=== PATIENT | female | born 1960 | race Caucasian/White ===

== ENCOUNTER 2017-05-31 16:39 | Emergency (ER) | payer MEDICARE ==
[~2017-05-31] VITALS: Ht 162.6 cm; Wt 83.9 kg
[~2017-05-31 16:39] MED LIST: DOXYCYCLINE HY100 M4 PO; PREDNISONE20 MG PO
[2017-05-31] MEDS ORDERED: TOPIRAMATE100 MG PO (16:52)
[2017-05-31] MEDS ORDERED: AVPAK PRIMIDONE50 MG PO (16:52)
[2017-05-31] MEDS ORDERED: ATENOLOL25 M1 PO (16:52)
[2017-05-31] MEDS ORDERED: AMITRIPTYLINE 225 MG PO (16:52)
--- OUTSIDE RECORDS SUMMARY | 2017-05-31 17:55 | External Medical Summary Rpt ---
Author Author DHIRAJ Escobar, [employer] Address Unknown Phone Unavailable
--- OUTSIDE RECORDS SUMMARY | 2017-05-31 17:55 | External Medical Summary Rpt ---
Author Author , DHIRAJ HEARN Address Unknown Phone [email or web address] Purpose Continuity of Care Document - 09-13-2016 through 2016 Problems Code Diagnosis DOS Provider Status R10.9 UNSPECIFIED 04-29-2017 ABDOMINAL PAIN N20.0 CALCULUS OF 01-03-2017 KIDNEY I10 ESSENTIAL 12-23-2016 (PRIMARY) HYPERTENSIO N K21.9 GASTRO-ESOP 12-23-2016 HAGEAL REFLUX DISEASE WITHOUT ESOPHAGITIS N13.39 OTHER 12-23-2016 HYDRONEPHRO SIS R10.31 RIGHT LOWER 12-23-2016 QUADRANT PAIN R11.0 NAUSEA 12-23-2016 Z90.49 ACQUIRED 12-23-2016 ABSENCE OF OTHER SPECIFIED PARTS OF DIGESTIVE TRACT Z90.710 ACQUIRED 12-23-2016 ABSENCE OF BOTH CERVIX AND UTERUS E27.9 DISORDER OF 11-15-2016 ADRENAL GLAND, UNSPECIFIED Z79.899 OTHER LONG 11-15-2016 TERM (CURRENT) DRUG THERAPY Z88.0 ALLERGY 11-15-2016 STATUS TO PENICILLIN G25.0 ESSENTIAL 09-13-2016 TREMOR G43.909 MIGRAINE, 09-13-2016 UNSPECIFIED , NOT INTRACTABLE , WITHOUT STATUS MIGRAINOSUS J32.9 CHRONIC 09-13-2016 SINUSITIS, UNSPECIFIED M19.90 UNSPECIFIED 09-13-2016 OSTEOARTHRI TIS, UNSPECIFIED SITE R94.39 ABNORMAL 09-13-2016 RESULT OF OTHER CARDIOVASCU LAR FUNCTION STUDY Z80.9 FAMILY 09-13-2016 HISTORY OF MALIGNANT NEOPLASM, UNSPECIFIED Z82.3 FAMILY 09-13-2016 HISTORY OF STROKE Z82.49 FAMILY 09-13-2016 HISTORY OF ISCHEMIC HEART DISEASE AND OTHER DISEASES OF THE CIRCULATORY SYSTEM Z82.61 FAMILY 09-13-2016 HISTORY OF ARTHRITIS Z83.3 FAMILY 09-13-2016 HISTORY OF DIABETES MELLITUS Z88.3 ALLERGY 09-13-2016 STATUS TO OTHER ANTI-INFECT CELINA AGENTS STATUS Z88.7 ALLERGY 09-13-2016 STATUS TO SERUM AND VACCINE STATUS Z88.8 ALLERGY 09-13-2016 STATUS TO OTHER DRUGS, MEDICAMENTS AND BIOLOGICAL SUBSTANCES STATUS
--- OUTSIDE RECORDS SUMMARY | 2017-05-31 17:55 | External Medical Summary Rpt ---
Author Author , DHIRAJ HEARN Address Unknown Phone [email or web address] Immunization Name Date Rout CVX Reac Dose Comm Prov Is Faci e tion ent ider Refu lity Give sed n Rabi 07-2 18 999 Hist H109 No H109 es, 3-19 oric IM 99 al Info rmat ion - Sour ce Unsp ecif ied Rabi 07-0 18 999 Hist H109 No H109 es, 9-19 oric IM 99 al Info rmat ion - Sour ce Unsp ecif ied Rabi 07-0 18 999 Hist H109 No H109 es, 2-19 oric IM 99 al Info rmat ion - Sour ce Unsp ecif ied Rabi 06-2 18 999 Hist H109 No H109 es, 8-19 oric IM 99 al Info rmat ion - Sour ce Unsp ecif ied Rabi 06-2 18 999 Hist H109 No H109 es, 5-19 oric IM 99 al Info rmat ion - Sour ce Unsp ecif ied
--- OUTSIDE RECORDS SUMMARY | 2017-05-31 17:55 | External Medical Summary Rpt ---
Author Author [employer] Organization [employer] Address Unknown Phone Unavailable Purpose Continuity of Care Document - through 2016
--- OUTSIDE RECORDS SUMMARY | 2017-05-31 17:55 | External Medical Summary Rpt ---
Author Author , DHIRAJ HEARN Address Unknown Phone [email or web address] Purpose Continuity of Care Document - 09-13-2016 [...]
--- OUTSIDE RECORDS SUMMARY | 2017-05-31 17:55 | External Medical Summary Rpt ---
Author Author , DHIRAJ HEARN Address Unknown Phone [email or web address] Immunization Name Date Rout CVX Reac Dose [...]
--- NOTE | 2017-05-31 18:48 | Emergency Room Report ---
History of Present Illness Time Seen by [id number] Presenting Problem in Triage Pt arrived:Wheelchair Presenting Problem:PT STATES HAS HAD 3 EPISODES OF PERIODS WHERE SHE GOES "VERY STIFF" HAS A SEVERE HEADACHE AND HER TREMORS GET WORSE. 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 N Clinical Suspician of Infection? N Mental Status: 1 - Regular (Normal Baseline) Sepsis Risk:Possible Sepsis Risk Have you (or family members/close friends) recently traveled outside the [place]? N If Yes, where/when: Have you had exposure to infectious disease within the past month? N TB? Other? Specify: Source patient, RN notes reviewed, family, RN/MD Exam Limitations no limitations Comment Patient has a history of chronic tremors, chronic migraine headaches. She is here today with a migraine headache for the past 3 days, worse tremors in upper extremities. She has photophobia, sonophobia, nausea but no vomiting. Patient has any fever. The pattern of her headache experienced over the past few days is unchanged from previous migraines experienced in the past. ALLERGIES Coded Allergies: Cephalosporins (05/31/17) NSAIDS (Non-Steroidal Anti-Inflamma (05/31/17) Penicillins (05/31/17) amoxicillin (05/31/17) tolmetin (05/31/17) Uncoded Allergies: RABIES VACCINES (05/31/17) Home Medications Reported Medications Atenolol 25 MG PO DAILY #30 Topiramate 100 MG PO QHS #90 Amitriptyline Hcl (Amitriptyline) 25 MG PO QHS #90 Primidone (Avpak Primidone) 100 MG PO QHS #60 History Medical History General CAD? No Angina: No [place]: No Hypertension? Yes Hyperlipidemia? Yes CHF? No COPD? No Asthma? No Hernia? No Thyroid Problems? No Hypothyroidism? No CVA? No Seizures? No Diabetes? No UTI? No Stones? No GB Disease: Yes Hepatitis? No Cataracts? No Glaucoma? No MRSA? No TB? No Cancer? Yes Site: Cervical More? Yes Additional hx: NON-ESSENTIAL TREMORS Immunization Hx DT/Tetanus 5-10 YRS Surgical Hx Previous Surgery?Y Lap Trice @[facility] 06/2001 ERCP @ [facility] 06/2001 L Shoulder ~ 1992 [facility]@[email or web address] surgery CERVICAL CANCER REMOVAL [facility] BILAT ARMS-MULT SURG. 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 Hx LMP N/A Family History Family Hx Diabetes No CAD Yes Hypertension Yes Hyperlipidemia Yes Cancer No TB No Social History Smoking Hx Smoker: Never Smoker Tobacco: No Alcohol Alcohol: No Review of Systems All Other Systems Reviewed and Negative Psychiatric/Neurological headache Physical Exam Vital Signs Vital Signs Date Time Temp Pulse Resp B/P Pulse O2 O2 Flow FiO2 Ox Delivery Rate 05/31 1946 97.7 93 18 149/88 99 05/31 1941 97.7 93 18 149/88 99 05/31 1939 20 05/31 1918 20 05/31 1911 98 20 125/84 96 05/31 1841 94 20 125/84 98 05/31 1836 20 05/31 1642 97.7 111 22 188/111 97 General Appearance normal appearance, WD/WN, mild distress Eye Exam - bilateral eye normal exam, bilateral eye PERRL, bilateral eye EOMI Neck normal inspection, non-tender, supple, full range of motion Respiratory Status Yes: trachea midline, chest symmetrical, non tender chest. No: respiratory distress. Lung Sounds bilateral: normal breath sounds, lungs clear. 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 No Comment Upon re-evaluationthe patient appears medically stable, clinically improving, afebrile, with no nuchal rigidity. Advised patient of the results obtained, need to follow-up with PCP per discharge instructions. Results/Orders Orders Procedure Date/time Status DIET-NOTHING BY MOUTH 05/[address] HEAD REQ 05/31 1655 Complete XRAY/CT/US XRAY/CT/US CT head CT interpretation by discussed w/radiologist CT Results see radiologist's report Departure Departure Disposition DC Home or Self Care(routine) Clinical Impression Primary Impression: Migraine headache Qualifiers: Migraine type: without aura Status migrainosus presence: without status migrainosus Intractability: not intractable Qualified Code: G43.009 - Migraine without aura, not intractable, without status migrainosus Condition STABLE Patient Instructions DI for Migraine Additional Instructions Please follow-up with your family physician the morning if no better. Discharge Counseling Counseled pt/family regarding diagnosis, medications/RX, home care, follow up needs Comment Please follow-up with your family physician the morning if no better. ED Critical Care Critical Care No at [phone]
--- NOTE | 2017-05-31 18:48 | Emergency Room Report ---
History of Present Illness Time Seen by [id number] Presenting Problem in Triage Pt arrived:Wheelchair Presenting Problem:PT STATES HAS HAD 3 EPISODES OF PERIODS WHERE SHE GOES "VERY STIFF" HAS A SEVERE HEADACHE AND HER TREMORS GET WORSE. 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 N Clinical Suspician of Infection? N Mental Status: 1 - Regular (Normal Baseline) Sepsis Risk:Possible Sepsis Risk Have you (or family members/close friends) recently traveled outside the [place]? N If Yes, where/when: Have you had exposure to infectious disease within the past month? N TB? Other? Specify: Source patient, RN notes reviewed, family, RN/MD Exam Limitations no limitations Comment Patient has a history of chronic tremors, chronic migraine headaches. She is here today with a migraine headache for the past 3 days, worse tremors in upper extremities. She has photophobia, sonophobia, nausea but no vomiting. Patient has any fever. The pattern of her headache experienced over the past few days is unchanged from previous migraines experienced in the past. ALLERGIES Coded Allergies: Cephalosporins (05/31/17) NSAIDS (Non-Steroidal Anti-Inflamma (05/31/17) Penicillins (05/31/17) amoxicillin (05/31/17) tolmetin (05/31/17) Uncoded Allergies: RABIES VACCINES (05/31/17) Home Medications Reported Medications Atenolol 25 MG PO DAILY #30 Topiramate 100 MG PO QHS #90 Amitriptyline Hcl (Amitriptyline) 25 MG PO QHS #90 Primidone (Avpak Primidone) 100 MG PO QHS #60 History Medical History General CAD? No Angina: No [place]: No Hypertension? Yes Hyperlipidemia? Yes CHF? No COPD? No Asthma? No Hernia? No Thyroid Problems? No Hypothyroidism? No CVA? No Seizures? No Diabetes? No UTI? No Stones? No GB Disease: Yes Hepatitis? No Cataracts? No Glaucoma? No MRSA? No TB? No Cancer? Yes Site: Cervical More? Yes Additional hx: NON-ESSENTIAL TREMORS Immunization Hx DT/Tetanus 5-10 YRS Surgical Hx Previous Surgery?Y [facility]ice [facility] 06/2001 ER[facility] @ [facility] 06/2001 L Shoulder ~ 1992 [facility]@[email or web address] surgery CERVICAL CANCER REMOVAL [facility] BILAT ARMS-MULT SURG. 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 Hx LMP N/A Family History Family Hx Diabetes No CAD Yes Hypertension Yes Hyperlipidemia Yes Cancer No TB No Social History Smoking Hx Smoker: Never Smoker Tobacco: No Alcohol Alcohol: No Review of Systems All Other Systems Reviewed and Negative Psychiatric/Neurological headache Physical Exam Vital Signs Vital Signs Date Time Temp Pulse Resp B/P Pulse O2 O2 Flow FiO2 Ox Delivery Rate 05/31 1946 97.7 93 18 149/88 99 05/31 1941 97.7 93 18 149/88 99 05/31 1939 20 05/31 1918 20 05/31 1911 98 20 125/84 96 05/31 1841 94 20 125/84 98 05/31 1836 20 05/31 1642 97.7 111 22 188/111 97 General Appearance normal appearance, WD/WN, mild distress Eye Exam - bilateral eye normal exam, bilateral eye PERRL, bilateral eye EOMI Neck normal inspection, non-tender, supple, full range of motion Respiratory Status Yes: trachea midline, chest symmetrical, non tender chest. No: respiratory distress. Lung Sounds bilateral: normal breath sounds, lungs clear. 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 No Comment Upon re-evaluationthe patient appears medically stable, clinically improving, afebrile, with no nuchal rigidity. Advised patient of the results obtained, need to follow-up with PCP per discharge instructions. Results/Orders Orders Procedure Date/time Status DIET-NOTHING BY MOUTH 05/[address] HEAD REQ 05/31 1655 Complete XRAY/CT/US XRAY/CT/US CT head CT interpretation by discussed w/radiologist CT Results see radiologist's report Departure Departure Disposition DC Home or Self Care(routine) Clinical Impression Primary Impression: Migraine headache Qualifiers: Migraine type: without aura Status migrainosus presence: without status migrainosus Intractability: not intractable Qualified Code: G43.009 - Migraine without aura, not intractable, without status migrainosus Condition STABLE Patient Instructions DI for Migraine Additional Instructions Please follow-up with your family physician the morning if no better. Discharge Counseling Counseled pt/family regarding diagnosis, medications/RX, home care, follow up needs Comment Please follow-up with your family physician the morning if no better. ED Critical Care Critical Care No at [phone]
[2017-05-31 19:46] VITALS: BP 149/88
--- NOTE | 2017-05-31 19:57 | RADIOLOGY REPORT PS360 ---
CT HEAD W/O CONTRAST HISTORY: Severe headache, worsening tremors and worsening headache WORSENING TREMORS ORDERING PHYSICIAN: Noe Bergman MD PATIENT AGE: 56 years COMPARISON: None TECHNIQUE: Axial images obtained without contrast. Brain and bone windows reviewed. FINDINGS: No midline shift, mass effect, intracranial hemorrhage, hydrocephalus, or extra-axial fluid collection is evident. The calvarium has an unremarkable appearance. No mastoid effusion. The visualized paranasal sinuses are unremarkable. IMPRESSION: Negative CT head without contrast. No acute finding.
== END 2017-05-31 19:56 | disposition home or self-care (01) ==
LOC: ER 16:39
DX: G43.009 Migraine without aura, not intractable, without status migrainosus (principal); I10 Essential (primary) hypertension; G25.0 Essential tremor
CPT/HCPCS: J2405